=== PATIENT | female | born 2000 | race African-American/Black ===

== ENCOUNTER 2021-02-20 12:26 | Emergency (ER) | payer BC ==
[~2021-02-20] VITALS: Ht 160 cm; Wt 66.0 kg
[2021-02-20] MEDS ORDERED: LORA-249 MT (14:21)
[2021-02-20 15:02] VITALS: BP 117/63
== END 2021-02-20 15:03 | disposition home or self-care (01) ==
LOC: ER 12:44
DX: R06.00 Dyspnea, unspecified (principal); F41.9 Anxiety disorder, unspecified
CPT/HCPCS: 81025; 93005; 99283

== ENCOUNTER 2021-04-23 19:14 | Emergency (ER) | payer BC ==
[~2021-04-23] VITALS: Ht 152.4 cm; Wt 62.0 kg
[~2021-04-23 19:14] MED LIST: LORA-249 MT
[2021-04-23] MEDS ORDERED: LORAZEPAM 0.5MG TABLET PO ONE (21:00)
[2021-04-23] MEDS ORDERED: LORA-249 MT ×3 (21:10→23:08)
[2021-04-23 21:40] VITALS: BP 143/97
== END 2021-04-23 21:40 | disposition home or self-care (01) ==
LOC: ER 19:14
DX: F41.9 Anxiety disorder, unspecified (principal); R06.02 Shortness of breath
CPT/HCPCS: 81025; 93005; 99283

== ENCOUNTER 2021-09-04 17:40 | Emergency (ER) | payer BC ==
[~2021-09-04] VITALS: Ht 152.4 cm; Wt 68.0 kg
[2021-09-04] MEDS ORDERED: KETOROLAC 30MG/ML VIAL IV STA (18:42)
[2021-09-04] MEDS ORDERED: ACETAMINOPHEN 325MG TABLET PO STA (18:42)
[2021-09-04] MEDS ORDERED: SODIUM CHLORIDE 0.9% 1,000 ML IV ONE ×2 (18:45)
[2021-09-04 19:00] LABS: HEMATOCRIT. 40.4 % (36.0-48.0); HEMOGLOBIN. 13.1 g/dL (12.0-16.0); MEAN CORPUSCULAR HEMOGLOBIN 26.2 pg (28.0-32.0); MEAN PLATELET VOLUME 9.3 fl (7.4-10.4); PLATELET 125 x1000/uL (130-400); RED BLOOD CELL COUNT 4.99 mill/uL (4.2-5.4); RED CELL DISTRIBUTION WIDTH 14.6 % (11.6-14.6)
[2021-09-04 19:05] LABS: CHLORIDE 106 mEq/L (98-107)
[2021-09-04 19:48] LABS: CLARITY URINE CLEAR (CLEAR); COLOR URINE YELLOW (YELLOW); KETONES URINE NEGATIVE (NEGATIVE); LEUKOCYTE ESTERASE URINE 1+ (NEGATIVE); NITRITE URINE NEGATIVE (NEGATIVE); OCCULT BLOOD URINE NEGATIVE (NEGATIVE); PROTEIN URINE NEGATIVE (NEGATIVE); SPECIFIC GRAVITY URINE 1.016 (1.005-1.030)
[2021-09-04 20:01] LABS: PLATELET ESTIMATE DECREASED
[2021-09-04] MEDS ORDERED: IBUPROFEN 600MG TABLET PO ONE (21:45)
[2021-09-04] MEDS ORDERED: CEPH500C2 MT (23:30)
[2021-09-04 23:50] VITALS: BP 112/64
== END 2021-09-04 23:55 | disposition home or self-care (01) ==
LOC: ER 17:49
DX: N30.00 Acute cystitis without hematuria (principal); B34.9 Viral infection, unspecified; I10 Essential (primary) hypertension; F41.9 Anxiety disorder, unspecified; Z20.822 Contact with and (suspected) exposure to COVID-19
CPT/HCPCS: 36415; 71045; 80053; 81003; 81025; 84443; 85025; 87040; 87426; 87804; 93005; 96361; 96374; 99285; J1885; J7030